=== PATIENT | male | born 1955 | race Caucasian/White ===

== ENCOUNTER → 2016-05-13 | Day surgery (SDC) | payer BC ==
[~2016-05-13] MED LIST: BACITRACIN IM FOR SOLN 50,000 UNIT VIAL ONE; BUPIVACAINE HCL PF 0.75% 30 ML VIAL ONE; BUPIVACAINE/EPINEPHRINE 0.25% PF 30 ML VIAL ONE; CLINDAMYCIN PHOS 600 MG/4 ML VIAL ONE; LACTATED RINGER'S 1000 ML INJ 1,000 ML ONE; LIDOCAINE 1.5%/EPINEPHrine 1:200,000 PF SOLN 30 ML AMP ONE; MIDAZOLAM HCL 5 MG/ML VIAL (1 ML) ONE; PROPOFOL 200 MG/20 ML AMP IV ONE; SODIUM CHLORIDE 0.9% INJ 10 ML ONE; SODIUM CHLORIDE 0.9% SOLN 100 ML (PAB) BAG IV ONE
--- NOTE | 2016-05-13 11:42 | TN ---
cc: KLEBER PAL M.D. DATE OF SURGERY 05/13/2016 PREOPERATIVE DIAGNOSIS 1. Left shoulder rotator cuff tear. 2. 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 POSTOPERATIVE DIAGNOSIS 1. Left shoulder large two and a half tendon retracted rotator cuff tear. 2. 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 Left shoulder open rotator cuff repair including Acromioplasty. 2. Left shoulder partial distal clavicle excision; 11-12 mm. SURGEON Kleber Pal MD ANESTHESIA General via laryngeal mask augmented by local infiltration and interscalene block. FLUID REPLACEMENT 800 cc of crystalloid BLOOD LOSS Minimal IMPLANTS Consisted of two Arthrex 5.5 mm Bio corkscrews with four sutures each and two Arthrex 4.5 mm Bio PushLocks. COMPLICATIONS There were no intraoperative complications. COUNTS All counts were correct. 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 He has been dealing with the symptoms for an extended period of time and is ready to take some time off to have this repaired and then enough time where he will be able to at least get it through the first phase before he has to return to modified duty. We discussed the risks, benefits, potential complications and limitations of the procedure including bleeding, infection, incomplete relief of his pain, recurrent tear, need for rehabilitation and immobilization as well as the specific risks associated with the fact that he has an Os acromiale or a mesoacromion which could be the development of a fibrous nonunion or even a nonunion at this site requiring further debridement in the future. Despite the potential risks, he was quite eager to proceed due to his functional limitations and pain and a full written informed consent was obtained today. DESCRIPTION OF PROCEDURE After the patient was verbally identified in the holding area, he correctly marked his left shoulder and I had initialed it as well and then he was given 600 mg of clindamycin as IV antibiotic prophylaxis due to his known penicillin allergy. At this time, he was given a preoperative interscalene block by Dr. Bruce with the use of ultrasound and a very effective block was obtained. He was then taken in the operating suite where he was placed under general laryngeal mask anesthetic and then he was placed into the beach-chair position. A brief time out was held, we confirmed the left shoulder was the correct site, the team was in agreement and the case was now begun. At this time, a 5-cm incision was made over the acromioclavicular joint extending further distally over the proximal deltoid. The subcutaneous tissues were divided. Hemostasis was achieved with electrocautery. I went ahead and subperiosteally dissected the acromioclavicular joint, but it took extreme caution not to superficially dissect over the surface of the acromion with the exception of just the tip of the acromion in order to mobilize the deltoid and the soft tissues to allow a safe acromioplasty. I also performed a partial distal clavicle excision of approximately 1 cm due to the advanced arthritis appreciated of the AC joint, as well as the osteophytes that were seen on the deep surface and on the cephalad surface of the clavicle. Once I excised the distal clavicle, there was no evidence of any further subclavicular impingement and the two surfaces no longer contacted one another. 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 There was a small amount of more motion than would be anticipated without it present, but at no point did a destabilized it or dissect over the cephalad surface of it where further motion would be exacerbated. A generous acromioplasty was performed taking off just the tip of the acromion and the undersurface of it somewhat excavating it in order to prevent him from having further impingement. As soon as the deep deltoid fascia was divided, joint fluid came directly into view consistent with a full-thickness cuff tear. A large amount of hypertrophic bursal tissue was encountered and this was debrided and then I was able to fully visualize the cuff. There was a complete [id number] tear through the supraspinatus. It extended into the infraspinatus posteriorly and to a lesser extent in the upper portion of subscapularis anteriorly as well. There was the appearance of new hematoma of the suscapular inury raising the concern over an acute injury superimposed upon his more chronic appearing pathology. I went ahead and cleaned the edge of the cuff tear with a second knife until a good fresh thick tissue was obtained and there was no longer any friable torn appearing tissue. I went ahead and formed a bone trough directly over the greater tuberosity and extended that both anteriorly and posteriorly in order to get a good base for the tear to be repair down into. It was during this time that I went ahead and inspected the glenohumeral joint. I was able to easily see within the joint space due to the large tear and as I was inspecting the joint, there were some degenerative changes seen of the glenohumeral joint, but no full-thickness cartilage loss was appreciated. There was small amounts of cartilaginous debris which were irrigated out. As I swept through the joint, I was able to visualize the labrum and the labrum was still attached circumferentially over the entire glenoid. There was some degenerative fraying seen posteriorly, but no ryan tear was appreciated. The biceps tendon was identified and there was no evidence of any biceps tendon lesion appreciated. It was also stable. At this time, I went ahead and placed two 5.5 mm Biocorkscrews in the bony trough that were established and went ahead and passed eight #2 FiberWire sutures that came with the anchor circumferentially around the cuff tear in order to reapproximate it. As we began to tension the sutures, the cuff repair came together anatomically. I did not feel as though it required further augmentation, but I did go ahead and place a standard speed bridge was done to further reinforce the repair as a lateral row. I took alternating sutures from each anchor tie point and placed them into two 4.5 mm Bio PushLocks staggered as a lateral row. This cleaned the edge of the repair nicely and caused better reapproximation of the tissue down onto the trough and smoothed the leading edge. The rotator cuff now moved quite well throughout a range of motion with the humeral head and once again there was no evidence of any gross instability of the acromion. No impingement was appreciated at this time as well. I irrigated out the subacromial space one-time further and then went ahead and place #2 FiberWire permanent sutures in the deltoid fascia, as well as, the origin of the superior acromioclavicular ligaments in order to get a good solid repair. The deltoid was then reapproximated further anteriorly with some of the #2 FiberWire suture as well getting good solid deltoid origin reattachment also. The subcutaneous tissues were then thoroughly irrigated. I placed some Vicryl sutures in the superficial deltoid fascia and then the subcu tissue was thoroughly irrigated and closed with 2-0 Vicryl inverted subcutaneous stitches and the skin was closed with jayy. I went ahead and irrigated an additional 20 cc of 0.25% Marcaine with epi in the subcutaneous tissues as well as in the deeper subacromial space for further postoperative pain relief to help augment the block. I went ahead and placed Xeroform, 4x4s, ABD's and foam tape over the shoulder. He was then awoken from anesthesia and taken to recovery in stable condition. Appropriate postoperative orders have been written. Kleber Pal MD Electronically Signed MD NIDIA Burkett/MALINI /11:01 AM /11:20 AM MTDMora
== END | disposition home or self-care (01) ==
LOC: ESDC 07:06
PROVIDERS: ATTEND Orthopaedic Surgery Sports Medicine
DX: M75.122 Complete rotator cuff tear or rupture of left shoulder, not specified as traumatic (principal); M19.012 Primary osteoarthritis, left shoulder; M75.42 Impingement syndrome of left shoulder
CPT/HCPCS: 00450; 01630; 01991; 23120; 23420; 64417; C1713; J2250; J7120